=== PATIENT | male | born 1970 | race Caucasian/White ===

== ENCOUNTER 2019-03-24 14:32 | Emergency (ER) | payer OTHER ==
[~2019-03-24] VITALS: Ht 193 cm; Wt 163.3 kg
[~2019-03-24 14:32] MED LIST: PEPCID AC20 M1 PO; XANAX 0.5 MG0.5 M1 PO
[2019-03-24] MEDS ORDERED: SERTRALINE HCL50 MG PO (15:38)
[2019-03-24 15:39] LABS: ABSOLUTE NEUTROPHILS 6.7 thou/uL (1.4-8.2); BASOPHILS 1.2 % (0.0-2.0); EOSINOPHILS 2.4 % (0.0-3.0); HEMATOCRIT 43.8 % (42.0-52.0); HEMOGLOBIN 15.1 gm/dL (14.0-18.0); LYMPHOCYTES 20.2 % (24.0-44.0); MCH 29.9 pg (26.0-34.0); MCHC 34.4 g/dL (28.0-37.0); MCV 86.8 fL (80.0-100.0); MONOCYTES 6.3 % (1.0-8.0); PLATELET COUNT 202 thou/uL (150-400); POLYS 69.9 % (36.0-66.0); RBC 5.05 mil/uL (4.50-6.00); RDW 13.6 % (10.5-14.5); WBC 9.6 thou/uL (4.0-11.0)
[2019-03-24 15:47] LABS: ANION GAP 8 mmol/L (7-16); BUN 9 mg/dL (7-18); CALCIUM 8.6 mg/dL (8.5-10.1); CHLORIDE 103 mmol/L (98-107); CO2 27 mmol/L (21-32); CREATININE 0.8 mg/dL (0.7-1.3); GLUCOSE 120 mg/dL (74-106); POTASSIUM 4.1 mmol/L (3.5-5.1); SODIUM 138 mmol/L (136-145)
[2019-03-24 15:56] LABS: MAGNESIUM 1.9 mg/dL (1.8-2.4); TROPONIN-I <0.06 ng/mL (<0.06)
[2019-03-24 16:56] VITALS: BP 140/68
--- NOTE | 2019-03-26 07:35 | EKG ---
[address] [place] [address] ELECTROCARDIOGRAM REPORT Name: MICHELLE FIERRO Room #: DEP Cristobal#: [id number] ������������������ Admission: 03/24/19 ������������������ Attend Phys: Discharge: 03/24/19 ������������������ Date of : 70 Report #: [id number] ����������������������������������������������������������������� [id number] THIS REPORT FOR: //name// [facility] ED Test Date: 2019-03-24 Test Time: 14:45:41 Pat Name: MICHELLE FIERRO Department: Room: Gender: Animal Warden: : 1970 Requested By: Julián Banuelos Order Number: [id number] MD: Austin Andrade Measurements Intervals [place] Rate: 127 P: 19 AR: 133 QRS: -48 QRSD: 119 T: 7 QT: 310 QTc: 451 Interpretive Statements Sinus tachycardia LAD, consider left anterior fascicular block Low voltage, precordial leads Baseline wander in lead(s) V1,V2 Compared to ECG 05/29/2012 15:05:46 No significant change was found Electronically Signed On 03-26-2019 7:34:52 CDT by Austin Andrade [email or web address] ��������������������������������������������� <ELECTRONICALLY SIGNED> ���������������������������������������� By: Austin Andrade MD, [facility] ��������������������������������������������� 03/26/19 0734 1445 1445 Austin Andrade MD, [facility] /EPI
== END 2019-03-24 16:57 | disposition home or self-care (01) ==
LOC: ER 14:32
PROVIDERS: Emergency Medicine
DX: F41.9 Anxiety disorder, unspecified (principal); K21.9 Gastro-esophageal reflux disease without esophagitis